=== PATIENT | female | born 1990 | race Caucasian/White ===

== ENCOUNTER 2016-02-18 16:42 | Emergency (ER) | payer OTHER ==
[~2016-02-18] VITALS: Ht 157.5 cm; Wt 93.1 kg
[~2016-02-18 16:42] MED LIST: DEPO400I IM; SILV1CRE59 TOP
[2016-02-18 16:45] VITALS: BP 124/81; PULSE 79; RESP 16; TEMP 98.5; O2SAT 98
[2016-02-18] MEDS ORDERED: KETOROLAC TROMETHAMINE 60 MG/2 ML (IM) VIAL IM ONE (17:00)
[2016-02-18] MEDS ORDERED: DEPO150I IM (17:02)
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
[2016-02-18] MEDS ORDERED: DICL75TA PO (17:54)
[2016-02-18] MEDS ORDERED: ROBA750T PO (17:54)
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
== END 2016-02-18 18:25 | disposition home or self-care (01) ==
LOC: PHEFT 16:42
DX: S13.4XXA Sprain of ligaments of cervical spine, initial encounter (principal); S20.212A Contusion of left front wall of thorax, initial encounter; R07.81 Pleurodynia; M25.512 Pain in left shoulder; V43.52XA Car driver injured in collision with other type car in traffic accident, initial encounter; Y93.89 Activity, other specified; Y92.410 Unspecified street and highway as the place of occurrence of the external cause
CPT/HCPCS: 71101; 72110; 72125; 73030; 84703; 96372; 99284; J1885

== ENCOUNTER 2017-01-05 17:11 | Emergency (ER) | payer OTHER ==
[~2017-01-05] VITALS: Ht 157.5 cm; Wt 90.5 kg
[2017-01-05] VITALS (7 sets, daily range): BP systolic 103–137; BP diastolic 62–89; PULSE 70–92; RESP 15–20; TEMP 98–99; O2SAT 87–99
[~2017-01-05 17:11] MED LIST changes: +DEPO150I IM; -DEPO400I IM; +DICL75TA PO; +ROBA750T PO; -SILV1CRE59 TOP
--- NOTE | 2017-01-05 17:52 | PD ---
HPI Chief Complaint: Chest Pain Time Seen by Provider: 17:48 Travel History International Travel<30 days: No Contact w/Intl Traveler<30days: No Traveled to known affect area: No History of Present Illness HPI 26-year-old female patient presents to the ER today with substernal 5-6 out of 10 chest pains which worsens with laying down. She denies any vomiting, shortness of breath, or other symptoms. She denies any previous episodes of chest discomfort. She denies any family history of early heart disease. She denies any anxiety or significant stress at this time. Modifying Factors: None Associated Signs & Symptoms: Chest pains Risk Factors: None PFSH Past Medical History Medical History: Denies Significant Hx Diminished Hearing: No Tetanus Vaccination: < 5 Years Influenza Vaccination: No ?: Not LMP: On depo, no menstrual cycle Past Surgical History Surgical History: No Previous Surgery Social History Alcohol Use: No Tobacco Use: No Substance Use: No Allergies-Medications (Allergen,Severity, Reaction): Coded Allergies: No Known Allergies (Unverified Adverse Reaction, Unknown, 01/05/17) Reported Meds & Prescriptions Reported Meds & Active Scripts Active Reported Depo-Provera Inj (Medroxyprogesterone Inj) 150 Mg/Ml Inj 150 Mg IM Q90D Review of Systems Except as stated in HPI: all other systems reviewed are Neg Physical Exam Narrative GENERAL: Well-developed young white female patient currently in mild distress. Awake and oriented 3. SKIN: Focused skin assessment warm/dry. HEAD: Atraumatic. Normocephalic. EYES: Pupils equal and round. No scleral icterus. No injection or drainage. ENT: No nasal bleeding or discharge. Mucous membranes pink and moist. NECK: Trachea midline. No JVD. CARDIOVASCULAR: Regular rate and rhythm. No murmur appreciated. Pulses are present and equal bilaterally. RESPIRATORY: No accessory muscle use. Clear to auscultation. Breath sounds equal bilaterally. GASTROINTESTINAL: Abdomen soft, non-tender, nondistended. Hepatic and splenic margins not palpable. MUSCULOSKELETAL: No obvious deformities. No clubbing. No cyanosis. No edema. NEUROLOGICAL: Awake and alert. No obvious cranial nerve deficits. Motor grossly within normal limits. Normal speech. PSYCHIATRIC: Appropriate mood and affect; insight and judgment normal. Data Data Last Documented VS Vital Signs Date Time Temp Pulse Resp B/P (MAP) Pulse Ox O2 Delivery O2 Flow Rate FiO2 01/05/17 18:08 137/89 (105) 135/79 (97) 01/05/17 17:59 Nasal Cannula 2.00 01/05/17 17:44 80 15 94 01/05/17 17:12 99.0 Orders Orders Electrocardiogram (01/05/17 17:48) Ckmb (Isoenzyme) Profile (01/05/17 17:48) Complete Blood Count With Diff (01/05/17 17:48) Comprehensive Metabolic Panel (01/05/17 17:48) D-Dimer (01/05/17 17:48) Magnesium (Mg) (01/05/17 17:48) Prothrombin Time / Inr (Pt) (01/05/17 17:48) Act Partial Throm Time (Ptt) (01/05/17 17:48) Troponin I (01/05/17 17:48) Chest, Single Ap (01/05/17 17:48) Ecg Monitoring (01/05/17 17:48) Bilateral Bp Monitoring (01/05/17 17:48) Iv Access Insert/Monitor (01/05/17 17:48) Oximetry (01/05/17 17:48) Oxygen Administration (01/05/17 17:48) Sodium Chloride 0.9% Flush (Ns Flush) (01/05/17 18:00) Ed Urine Pregnancytest Poc (01/05/17 17:48) Drug Screen, Random Urine (01/05/17 17:48) Albuterol-Ipratropium Neb (Duoneb Neb) (01/05/17 19:00) Labs Laboratory Tests Test 01/05/17 17:55 White Blood Count 14.3 TH/MM3 Red Blood Count 4.80 MIL/MM3 Hemoglobin 15.2 GM/DL Hematocrit 43.3 % Mean Corpuscular Volume 90.2 FL Mean Corpuscular Hemoglobin 31.6 PG Mean Corpuscular Hemoglobin Concent 35.1 % Red Cell Distribution Width 13.0 % Platelet Count 251 TH/MM3 Mean Platelet Volume 8.7 FL Neutrophils (%) (Auto) 70.0 % Lymphocytes (%) (Auto) 22.7 % Monocytes (%) (Auto) 6.4 % Eosinophils (%) (Auto) 0.6 % Basophils (%) (Auto) 0.3 % Neutrophils # (Auto) 10.0 TH/MM3 Lymphocytes # (Auto) 3.3 TH/MM3 Monocytes # (Auto) 0.9 TH/MM3 Eosinophils # (Auto) 0.1 TH/MM3 Basophils # (Auto) 0.0 TH/MM3 CBC Comment DIFF FINAL Differential Comment Blood Urea Nitrogen 16 MG/DL Creatinine 0.72 MG/DL Random Glucose 85 MG/DL Albumin 4.1 GM/DL Calcium Level 9.2 MG/DL Magnesium Level 2.1 MG/DL Aspartate Amino Transf (AST/SGOT) 11 U/L Alanine Aminotransferase (ALT/SGPT) 27 U/L Sodium Level 139 MEQ/L Potassium Level 3.6 MEQ/L Chloride Level 107 MEQ/L Carbon Dioxide Level 22.5 MEQ/L Anion Gap 10 MEQ/L Estimat Glomerular Filtration Rate 98 ML/MIN MDM Medical Decision Making Medical Screen Exam Complete: Yes Emergency Medical Condition: Yes Medical Record Reviewed: Yes Interpretation(s) EKG shows normal sinus rhythm at a rate of 80 bpm with no signs of acute ST-T changes. Laboratory Tests Test 01/05/17 17:55 White Blood Count 14.3 TH/MM3 (4.0-11.0) Neutrophils # (Auto) 10.0 TH/MM3 (1.8-7.7) Aspartate Amino Transf (AST/SGOT) 11 U/L (15-37) Last 24 hours Impressions Chest X-Ray 01/05/17 [id number] Signed Impressions: Service Date/Time: Thursday, January 05, 2017 18:14 - CONCLUSION: The lungs are clear. Ilir Joiner MD Differential Diagnosis Chest pains: Costochondritis versus dysrhythmias versus ACS versus pneumonia versus PE Narrative Course Chest x-ray did not show any signs of acute pulmonary processes. Chest pain workup was initiated with d-dimer in the ER. Physician Communication Physician Communication Case is signed out to Dr. Santiago at 7 PM pending workup. Disposition based on workup. Diagnosis Primary Impression: Chest pain Condition: Stable Bayron Lincoln MD Jan 05, 2017 17:52
[2017-01-05] MEDS ORDERED: SODIUM CHLORIDE 0.9% FLUSH 10 ML FLUSH IVF PRN (18:00)
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
[2017-01-05 18:46] LABS: BASOPHIL % 0.3 % (0.0-2.0); EOSINOPHIL # 0.1 TH/MM3 (0-0.4); EOSINOPHIL % 0.6 % (0.0-4.0); HEMATOCRIT 43.3 % (35.0-46.0); HEMO FLAGS DIFF FINAL; LYMPH % 22.7 % (9.0-44.0); LYMPHOCYTE # 3.3 TH/MM3 (1.0-4.8); MEAN CELL VOLUME 90.2 FL (80.0-100.0); MEAN CORPUSCULAR HEMOGLOBIN 31.6 PG (27.0-34.0); MEAN CORPUSCULAR HGB CONC 35.1 % (32.0-36.0); MONO % 6.4 % (0.0-8.0); PLATELET COUNT 251 TH/MM3 (150-450); WHITE BLOOD COUNT 14.3 TH/MM3 (4.0-11.0)
[2017-01-05] MEDS ORDERED: RESP: ALBUTEROL 2.5 MG/IPRATROPIUM 0.5 MG NEB (SCH) INH ONE (19:00)
[2017-01-05 19:05] LABS: ANION GAP 10 MEQ/L (5-15); APTT (PATIENT) 29.9 SEC (24.3-30.1); AST (GOT) 11 U/L (15-37); BICARBONATE 22.5 MEQ/L (21.0-32.0); BLOOD UREA NITROGEN 16 MG/DL (7-18); CHLORIDE 107 MEQ/L (98-107); GLOMERULAR FILTRATION RATE 98 ML/MIN (>89); INTERNATIONAL NORMALIZED RATIO 0.9 RATIO; MAGNESIUM 2.1 MG/DL (1.5-2.5); POTASSIUM 3.6 MEQ/L (3.5-5.1); PROTHROMBIN TIME - PATIENT 10.4 SEC (9.8-11.6); SODIUM (NA) 139 MEQ/L (136-145)
[2017-01-05 19:06] LABS: ALT (GPT) 27 U/L (10-53)
[2017-01-05 19:10] LABS: ALKALINE PHOSPHATASE 86 U/L (45-117); CREATINE KINASE 104 U/L (26-192); TOTAL BILIRUBIN ADULT 0.3 MG/DL (0.2-1.0)
[2017-01-05 19:22] LABS: CKMB 0.6 NG/ML (0.5-3.6)
[2017-01-05] MEDS ORDERED: RESP: ALBUTEROL 2.5 MG/IPRATROPIUM 0.5 MG NEB (SCH) NEB ONE (21:15)
[2017-01-05] MEDS ORDERED: KETOROLAC TROMETHAMINE 30 MG/ML (IVP) VIAL IV PUSH ONE (21:15)
--- NOTE | 2017-01-05 22:18 | PD ---
Physical Exam Date Seen by Provider: Jan 05, 2017 Time Seen by Provider: 22:05 Narrative Accepted in transfer of care from Dr Lincoln GENERAL: Well-developed well-nourished female in no acute distress no respiratory distress SKIN: Warm and dry. HEAD: Normocephalic. EYES: No scleral icterus. No injection or drainage. NECK: Supple, trachea midline. No JVD or lymphadenopathy. CARDIOVASCULAR: Regular rate and rhythm without murmurs, gallops, or rubs. No rubs. RESPIRATORY: Breath sounds equal bilaterally. No accessory muscle use. No wheezing. GASTROINTESTINAL: Abdomen soft, non-tender, nondistended. MUSCULOSKELETAL: No cyanosis, or edema. BACK: Nontender without obvious deformity. No CVA tenderness. Data Data Last Documented VS Vital Signs Date Time Temp Pulse Resp B/P (MAP) Pulse Ox O2 Delivery O2 Flow Rate FiO2 01/05/17 22:24 98.0 87 20 113/73 (86) 97 Room Air 01/05/17 21:00 2.00 Orders Orders Electrocardiogram (01/05/17 17:48) Ckmb (Isoenzyme) Profile (01/05/17 17:48) Complete Blood Count With Diff (01/05/17 17:48) Comprehensive Metabolic Panel (01/05/17 17:48) D-Dimer (01/05/17 17:48) Magnesium (Mg) (01/05/17 17:48) Prothrombin Time / Inr (Pt) (01/05/17 17:48) Act Partial Throm Time (Ptt) (01/05/17 17:48) Troponin I (01/05/17 17:48) Chest, Single Ap (01/05/17 17:48) Ecg Monitoring (01/05/17 17:48) Bilateral Bp Monitoring (01/05/17 17:48) Iv Access Insert/Monitor (01/05/17 17:48) Oximetry (01/05/17 17:48) Oxygen Administration (01/05/17 17:48) Sodium Chloride 0.9% Flush (Ns Flush) (01/05/17 18:00) Ed Urine Pregnancytest Poc (01/05/17 17:48) Drug Screen, Random Urine (01/05/17 17:48) Albuterol-Ipratropium Neb (Duoneb Neb) (01/05/17 19:00) CKMB (01/05/17 17:55) CKMB% (01/05/17 17:55) Albuterol-Ipratropium Neb (Duoneb Neb) (01/05/17 21:15) Ketorolac Inj (Toradol Inj) (01/05/17 21:15) Troponin I (01/05/17 21:02) Ed Discharge Order (01/05/17 22:40) Labs Laboratory Tests Test 01/05/17 17:55 01/05/17 19:15 White Blood Count 14.3 TH/MM3 Red Blood Count 4.80 MIL/MM3 Hemoglobin 15.2 GM/DL Hematocrit 43.3 % Mean Corpuscular Volume 90.2 FL Mean Corpuscular Hemoglobin 31.6 PG Mean Corpuscular Hemoglobin Concent 35.1 % Red Cell Distribution Width 13.0 % Platelet Count 251 TH/MM3 Mean Platelet Volume 8.7 FL Neutrophils (%) (Auto) 70.0 % Lymphocytes (%) (Auto) 22.7 % Monocytes (%) (Auto) 6.4 % Eosinophils (%) (Auto) 0.6 % Basophils (%) (Auto) 0.3 % Neutrophils # (Auto) 10.0 TH/MM3 Lymphocytes # (Auto) 3.3 TH/MM3 Monocytes # (Auto) 0.9 TH/MM3 Eosinophils # (Auto) 0.1 TH/MM3 Basophils # (Auto) 0.0 TH/MM3 CBC Comment DIFF FINAL Differential Comment Prothrombin Time 10.4 SEC Prothromb Time International Ratio 0.9 RATIO Activated Partial Thromboplast Time 29.9 SEC D-Dimer Quantitative (PE/DVT) 0.26 MG/L FEU Blood Urea Nitrogen 16 MG/DL Creatinine 0.72 MG/DL Random Glucose 85 MG/DL Total Protein 8.2 GM/DL Albumin 4.1 GM/DL Calcium Level 9.2 MG/DL Magnesium Level 2.1 MG/DL Alkaline Phosphatase 86 U/L Aspartate Amino Transf (AST/SGOT) 11 U/L Alanine Aminotransferase (ALT/SGPT) 27 U/L Total Bilirubin 0.3 MG/DL Sodium Level 139 MEQ/L Potassium Level 3.6 MEQ/L Chloride Level 107 MEQ/L Carbon Dioxide Level 22.5 MEQ/L Anion Gap 10 MEQ/L Estimat Glomerular Filtration Rate 98 ML/MIN Total Creatine Kinase 104 U/L Creatine Kinase MB 0.6 NG/ML Troponin I LESS THAN 0.02 NG/ML LESS THAN 0.02 NG/ML Urine Opiates Screen NEG Urine Barbiturates Screen NEG Urine Amphetamines Screen NEG Urine Benzodiazepines Screen NEG Urine Cocaine Screen NEG Urine Cannabinoids Screen NEG MDM Medical Record Reviewed: Yes Supervised Visit with TANIA: No Interpretation(s) Last Impressions Chest X-Ray 01/05/17 [id number] Signed Impressions: Service Date/Time: Thursday, January 05, 2017 18:14 - CONCLUSION: The lungs are clear. Ilir Joiner MD CBC & BMP Diagram 01/05/17 17:55 Total Protein 8.2, Albumin 4.1, Calcium Level 9.2, Magnesium Level 2.1, Alkaline Phosphatase 86, Aspartate Amino Transf (AST/SGOT) 11 L, Alanine Aminotransferase (ALT/SGPT) 27, Total Bilirubin 0.3 Vital Signs Date Time Temp Pulse Resp B/P (MAP) Pulse Ox O2 Delivery O2 Flow Rate FiO2 01/05/17 21:00 70 18 123/71 (88) 98 Nasal Cannula 2.00 01/05/17 20:00 84 17 103/62 (76) 96 Nasal Cannula 2.00 01/05/17 18:08 137/89 (105) 135/79 (97) 01/05/17 17:59 Nasal Cannula 2.00 01/05/17 17:44 80 15 135/79 (97) 94 Nasal Cannula 2.00 01/05/17 17:41 Nasal Cannula 2.00 01/05/17 17:40 87 Room Air 01/05/17 17:40 87 Room Air 01/05/17 17:12 99.0 92 18 137/89 (105) 99 Room Air Differential Diagnosis Accepted in transfer of care from Dr Lincoln; please refer to her dictation Narrative Course Accepted in transfer of care from Dr Lincoln for follow-up of pending labs and patient response to updraft treatment Patient resting comfortably states that patient pain has a positional component to it no increased pain with leaning forward some increased pain with resting supine EKG shows no ST segment elevation or changes for pericarditis cardiac enzymes are found to be in normal range. Chest x-ray no lobar infiltrate Diagnosis Primary Impression: Chest pain Additional Impressions: Costochondritis Leukocytosis Referrals: Primary Care Physician call for appointment Patient Instructions: General Instructions Additional Instruction: Increase fluid hydration Follow-up with primary care provider Use inhaler as prescribed as needed for wheezing or shortness of breath Complete course of steroid as prescribed May use acetaminophen/Tylenol every 4 hours as needed for fever 100.4F or greater May use ibuprofen/Advil/Motrin every 6-8 hours as needed for fever 100.4F or greater or for pain associated inflammation do not take this medication while completing course of steroid Return to the emergency for for pain fever vomiting or any concerns Med/Other Pt SpecificInfo: Prescription(s) given Scripts Albuterol 18 GM Inh (Ventolin Hfa 18 GM Inh) 90 Mcg/Act Aer 2 PUFF INH Q4-6H Y for SHORTNESS OF BREATH, #1 INHALER 0 Refills Prov: Hazel Santiago MD 01/05/17 Azithromycin (Zithromax Z-Shiv) 250 Mg Dspk 250 MG PO DIRECTED for Infection, #1 DSPK 0 Refills 500 MG (2 tabs) day 1, then 1 tab days 2-5. Prov: Hazel Santiago MD 01/05/17 Methylprednisolone Dosepak (Medrol Dosepak) 4 Mg Dspk 4 MG PO DIRECTED, #1 DSPK 0 Refills Per Pharmacist direction Prov: Hazel Santiago MD 01/05/17 Disposition: 01 DISCHARGE HOME Condition: Stable Hazel Santiago MD Jan 05, 2017 22:18
[2017-01-05] MEDS ORDERED: MEDR4PAK PO (22:44)
[2017-01-05] MEDS ORDERED: VENTAER INH (22:44)
[2017-01-05] MEDS ORDERED: ZITHTAB PO (22:44)
--- NOTE | 2017-01-06 10:38 | EKG ---
Date Performed: 01/05/2017 Time Performed: 17:37:47 PTAGE: 26 years EKG: Sinus rhythm POSSIBLE LEFT ATRIAL ENLARGEMENT POSSIBLE RIGHT VENTRICULAR CONDUCTION DELAY BORDERLINE ECG NO PREVIOUS TRACING DOCTOR: Marlon Dejesus Interpretating Date/Time 01/06/2017 10:37:03
== END 2017-01-05 22:55 | disposition home or self-care (01) ==
LOC: NEPC 17:11
DX: M94.0 Chondrocostal junction syndrome [Tietze] (principal); D72.829 Elevated white blood cell count, unspecified
CPT/HCPCS: 71010; 80053; 80307; 82550; 82552; 83735; 84484; 84703; 85025; 85379; 85610; 85730; 93005; 94640; 94664; 96374; 99285; J1885